=== PATIENT | female | born 1965 | race Caucasian/White ===

== ENCOUNTER → 2024-04-16 10:26 | Outpatient (REF) | payer BC, SELFPAY ==
[2024-04-16 11:23] LABS: % Basophils 0.8 % (0-2); % Eosinophils 1.2 % (0-6); % Immature Granulocytes 0.3 % (0-0.5); % Lymphocytes 29.5 % (20.5-51.1); % Monocytes 7.3 % (1.7-9.3); % Neutrophils 60.9 % (42.2-75.2); Absolute Basophils 0.1 10^3/uL (0-0.2); Absolute Eosinophils 0.1 10^3/uL (0-0.7); Absolute Lymphocytes 2.1 10^3/uL (1.2-3.4); Absolute Monocytes 0.5 10^3/uL (0.1-0.6); Absolute Neutrophils 4.4 10^3/uL (1.4-6.5); Hematocrit 39.1 % (37.0-47.0); Hemoglobin 12.9 g/dL (12.0-16.0); Mean Corpuscular Hgb 28.1 pg (27.0-31.0); Mean Corpuscular Volume 85.2 fL (81.0-99.0); Mean Platelet Volume 9.6 fL (7.4-10.4); Nucleated Red Blood Cells % 0 %; Platelet Count 334 10^3/uL (130-400); Red Blood Cell Count 4.59 10^6/uL (4.20-5.40); Red Cell Dist. Width 13.2 % (11.5-14.5); White Blood Cell Count 7.2 10^3/uL (4.8-10.8)
[2024-04-16 12:15] LABS: C-Reactive Protein < 5.00 mg/L (0.0-10.00)
[2024-04-16 12:49] LABS: Erythrocyte Sed Rate 7 mm/hour (0-20)
== END ==
LOC: REG 10:26
PROVIDERS: ATTENDING PHYSICIAN Student in an Organized Health Care Education/Training Program; FAMILY PHYSICIAN Internal Medicine
DX: M25.562 Pain in left knee (principal)
CPT/HCPCS: 36415; 85025; 85652; 86140